=== PATIENT | female | born 1955 | race African-American/Black ===

== ENCOUNTER 2024-07-19 12:45 | Emergency (ER) | payer OTHER ==
[2024-07-19 12:59] VITALS: BP 126/75; PULSE 78; RESP 17; TEMP 98.4; BMI 19.7
== END 2024-07-19 15:00 | disposition home or self-care (01) ==
LOC: JERFT 12:45
DX: H04.131 Lacrimal cyst, right lacrimal gland (principal); M79.651 Pain in right thigh
CPT/HCPCS: 99283-25